=== PATIENT | male | born 1970 | race Caucasian/White ===

== ENCOUNTER → 2021-11-27 | Outpatient (REF) | payer OTHER | LOC: M SFHCCLAY 15:06 | PROVIDERS: ATTEND Physician Assistant | DX: Z53.9 Procedure and treatment not carried out, unspecified reason (principal) ==

== ENCOUNTER → 2021-11-27 | Outpatient (REF) | payer OTHER | LOC: M SFHCCLAY 15:56 | PROVIDERS: ATTEND Physician Assistant | DX: L57.8 Other skin changes due to chronic exposure to nonionizing radiation (principal) ==

== ENCOUNTER → 2022-01-20 | Outpatient (CLI) | payer BC, OTHER ==
[2022-01-20 10:14] LABS: BASO # 0.1 10^3/uL (0.0-0.2); BASO % 1.9 % (0.0-1.0); EOS # 0.1 10^3/uL (0.0-0.5); EOS % 2.4 % (0.0-3.0); HEMATOCRIT 47.8 % (42.0-52.0); LYMPH # 1.9 10^3/uL (1.5-5.0); LYMPH % 35.6 % (24.0-44.0); MEAN CORPUSCULAR HEMOGLOBIN 30.4 pg (27.0-33.0); MEAN CORPUSCULAR HGB CONC 33.5 g/dl (32.0-36.5); MEAN CORPUSCULAR VOLUME 90.9 fl (80.0-96.0); MONO # 0.5 10^3/uL (0.0-0.8); MONO % 8.5 % (2.0-8.0); NEUTROPHILS # 2.7 10^3/uL (1.5-8.5); NEUTROPHILS % 51.2 % (36.0-66.0); PLATELET COUNT, AUTOMATED 268 10^3/uL (150-450); RED BLOOD COUNT 5.26 10^6/uL (4.30-6.10); WHITE BLOOD COUNT 5.3 10^3/uL (4.0-10.0)
[2022-01-20 10:45] LABS: ERYTHROCYTE SEDIMENTATION RATE 5 mm/hr (0-20)
[2022-01-20 10:48] LABS: C REACTIVE PROTEIN QUANTITATIV 0.63 MG/DL (0.00-0.30); FERRITIN 187 NG/ML (26-388); IRON (FE) 61 UG/DL (65-175); PERCENT SATURATION 17.3 % (19.7-50.0); THYROID STIMULATING HORMONE 0.534 uIU/ML (0.358-3.740); TOTAL IRON BINDING CAPACITY 353 UG/DL (250-450)
[2022-01-20 10:50] LABS: LUTEINIZING HORMONE 4.3 mIU/mL (1.5-9.3); PROLACTIN 7.3 NG/ML (2.1-17.7)
[2022-01-20 10:51] LABS: FOLLICLE STIMULATING HORMONE 9.3 mIU/mL (1.4-18.1)
== END ==
LOC: M LAB 09:27
PROVIDERS: ATTEND Nurse Practitioner Family
DX: L65.9 Nonscarring hair loss, unspecified (principal)

== ENCOUNTER → 2022-08-17 | Outpatient (REF) | payer OTHER ==
[2022-08-17 17:47] LABS: BASO % 0.8 % (0.0-1.0); EOS # 0.1 10^3/uL (0.0-0.5); EOS % 2.7 % (0.0-3.0); HEMATOCRIT 46.8 % (42.0-52.0); HEMOGLOBIN 15.5 g/dl (13.5-17.5); LYMPH # 2.3 10^3/uL (1.5-5.0); LYMPH % 43.6 % (24.0-44.0); MEAN CORPUSCULAR HEMOGLOBIN 29.7 pg (27.0-33.0); MEAN CORPUSCULAR HGB CONC 33.1 g/dl (32.0-36.5); MEAN CORPUSCULAR VOLUME 89.7 fl (80.0-96.0); MONO # 0.5 10^3/uL (0.0-0.8); MONO % 8.9 % (2.0-8.0); NEUTROPHILS # 2.3 10^3/uL (1.5-8.5); NEUTROPHILS % 43.8 % (36.0-66.0); PLATELET COUNT, AUTOMATED 239 10^3/uL (150-450); RED BLOOD COUNT 5.22 10^6/uL (4.30-6.10); WHITE BLOOD COUNT 5.3 10^3/uL (4.0-10.0)
[2022-08-17 18:19] LABS: CREATININE, URINE 134.6 MG/DL; MALB URINE SIEMENS < 3.0 MG/DL; MAU/CREAT RATIO 2.2 MCG/MG (0.0-30.0)
[2022-08-17 18:24] LABS: THYROID STIMULATING HORMONE 0.469 uIU/ML (0.55-4.78); TOTAL 25(OH) VITAMIN D 21.3 NG/ML (20.0-100.0)
[2022-08-17 18:26] LABS: ALBUMIN 3.8 G/DL (3.2-5.2); ALKALINE PHOSPHATASE 56 U/L (46-116); ALT/SGPT 32 U/L (7.0-40); AST/SGOT 27 U/L (<34); BILIRUBIN,TOTAL 0.5 MG/DL (0.3-1.2); BLOOD UREA NITROGEN 21 MG/DL (9-23); CALCIUM LEVEL 9.3 MG/DL (8.5-10.1); CARBON DIOXIDE LEVEL 23 MMOL/L (20-31); CHLORIDE LEVEL 103 MMOL/L (98-107); CHOLESTEROL LEVEL 141 MG/DL (<200); CHOLESTEROL RISK RATIO 3.66 (<5); GLOMERULAR FILTRATION RATE > 60.0 (>56); GLUCOSE, FASTING 161 MG/DL (60-100); HDL CHOLESTEROL 38.5 MG/DL (>40); LDL CHOLESTEROL 82.5 MG/DL (<100); NON-HDL-C 103 MG/DL; POTASSIUM SERUM 4.7 MMOL/L (3.5-5.1); SODIUM LEVEL 137 MMOL/L (136-145); TOTAL PROTEIN 6.7 G/DL (5.7-8.2); TRIGLYCERIDES LEVEL 100 MG/DL (<150)
[2022-08-17 18:33] LABS: HEMOGLOBIN A1c 7.3 % (4.0-6.0)
== END ==
LOC: M SFHCCAPE 07:18
PROVIDERS: ATTEND Physician Assistant
DX: Z00.00 Encounter for general adult medical examination without abnormal findings (principal); E11.69 Type 2 diabetes mellitus with other specified complication
CPT/HCPCS: 80053; 80061; 82043; 82306; 83036; 84443; 85025; G0103

== ENCOUNTER → 2022-10-11 | Outpatient (CLI) | payer BC, OTHER ==
[~2022-10-11] MED LIST: AMLO2.5T3; ATOR1TAB21; CHLO125TA; FENO150C; INSUH10VL; LEVO200T4; LEVO25TA5; LISI20TA33; OMEP-173
== END ==
LOC: M LABSMTC 09:24
PROVIDERS: ATTEND Anesthesiology
DX: Z01.812 Encounter for preprocedural laboratory examination (principal); Z20.822 Contact with and (suspected) exposure to COVID-19

== ENCOUNTER 2022-10-15 07:25 | Day surgery (SDC) | payer BC, OTHER ==
[~2022-10-15] VITALS: Ht 177.8 cm; Wt 103.8 kg
[~2022-10-15 07:25] MED LIST changes: +NS 1,000 ML IV ONE
[2022-10-15] MEDS ORDERED: propofoL 200 MG/20 ML VIAL As Ordered ONE ×2 (07:36→08:50)
[2022-10-15] MEDS ORDERED: LIDOCAINE 2% 100MG/5ML SDV (FOR ANES.) As Ordered ONE (07:36)
[2022-10-15] MEDS ORDERED: SIMETHICONE 40MG/0.6ML DROPS 30ML As Ordered ONE (08:17)
[2022-10-15 09:00] VITALS: BP 128/77
== END 2022-10-15 09:08 | disposition home or self-care (01) ==
LOC: M OPP 07:25
PROVIDERS: ATTEND Surgery
DX: Z12.11 Encounter for screening for malignant neoplasm of colon (principal); D12.3 Benign neoplasm of transverse colon; K57.30 Diverticulosis of large intestine without perforation or abscess without bleeding; E03.9 Hypothyroidism, unspecified; I10 Essential (primary) hypertension; E10.9 Type 1 diabetes mellitus without complications; Z96.41 Presence of insulin pump (external) (internal); Z79.02 Long term (current) use of antithrombotics/antiplatelets; Z79.4 Long term (current) use of insulin; Z79.52 Long term (current) use of systemic steroids; Z79.890 Hormone replacement therapy; Z88.0 Allergy status to penicillin; Z88.6 Allergy status to analgesic agent

== ENCOUNTER → 2023-03-23 | Outpatient (REF) | payer OTHER ==
[~2023-03-23] MED LIST changes: -NS 1,000 ML IV ONE
== END ==
LOC: M SFHCDERM 07:30
PROVIDERS: ATTEND Nurse Practitioner Family
DX: L65.9 Nonscarring hair loss, unspecified (principal); Z53.9 Procedure and treatment not carried out, unspecified reason

== ENCOUNTER → 2024-02-22 | Outpatient (REF) | payer BC | LOC: M SFHCDERM 07:29 | PROVIDERS: ATTEND Nurse Practitioner Family | DX: L65.9 Nonscarring hair loss, unspecified (principal); Z79.899 Other long term (current) drug therapy ==

== ENCOUNTER → 2025-06-19 | Outpatient (REF) | payer BC ==
[2025-06-19 18:14] LABS: PLATELET COUNT, AUTOMATED 469 10^3/uL (150-450)
== END ==
LOC: M SFHCCAPE 07:42
PROVIDERS: ATTEND Physician Assistant Medical
DX: Z00.00 Encounter for general adult medical examination without abnormal findings (principal); K21.9 Gastro-esophageal reflux disease without esophagitis; Z12.5 Encounter for screening for malignant neoplasm of prostate
CPT/HCPCS: 85027; G0103